=== PATIENT | male | born 1980 | race Two or more races ===

== ENCOUNTER 2017-09-10 07:50 | Emergency (ER) | payer BC ==
[2017-09-10 07:56] VITALS: BP 128/75
--- NOTE | 2017-09-10 08:11 | ER Document Report ---
ED Neck/Back Problem - General Chief Complaint: Low Back Pain Stated Complaint: WC/BACK PAIN Time Seen by Provider: 09/10/17 08:11 Mode of Arrival: Ambulatory Information source: Patient TRAVEL OUTSIDE OF THE [place] IN LAST 30 DAYS: No - HPI Patient complains to provider of: Pain, Injury Onset: Other - 2 DAYS AGO Where: Work Onset: Sudden Timing: Constant, Waxing and waning Quality of pain: Sharp Severity: Moderate Context: Lifting - PICKED UP A 5# BOX OFF FLOOR Recent injury: Yes Associated symptoms: None. denies: Incontinence, Unable to urinate Exacerbated by: Movement of trunk Relieved by: Remaining still Similar symptoms previously: Yes - SEVERAL Recently seen / treated by doctor: Yes - CHIROPRACTOR, YESTERDAY - Related Data Allergies/Adverse Reactions: No Known Allergies Allergy (Verified 09/10/17 07:51) Past Medical History - General Information source: Patient - Social History Smoking Status: Unknown if Ever Smoked Chew tobacco use (# tins/day): No Frequency of alcohol use: Social Drug Abuse: None Lives with: Spouse/Significant other Family History: None Patient has suicidal ideation: No Patient has homicidal ideation: No - Past Medical History Cardiac Medical History: Reports: None Pulmonary Medical History: Reports: None EENT Medical History: Reports: None Neurological Medical History: Reports: None Endocrine Medical History: Reports: None Renal/ Medical History: Reports: None. Denies: Hx Peritoneal Dialysis Malignancy Medical History: Reports None GI Medical History: Reports: None Musculoskeltal Medical History: Reports Other - SEVERAL EPISODES OF INJURY SIMILAR TO PRESENT Psychiatric Medical History: Reports: None Surgical Hx: Negative - Immunizations Hx Diphtheria, Pertussis, Tetanus Vaccination: Yes Review of Systems - Review of Systems Constitutional: No symptoms reported. denies: Fever EENT: No symptoms reported Cardiovascular: No symptoms reported Respiratory: No symptoms reported Gastrointestinal: No symptoms reported Genitourinary: No symptoms reported. denies: Incontinence, Retention Musculoskeletal: See HPI Skin: No symptoms reported Neurological/Psychological: No symptoms reported Physical Exam - Vital signs Vitals: Temp Pulse Resp BP Pulse Ox 98.6 F 88 20 128/75 H 96 09/10/17 07:54 09/10/17 07:54 09/10/17 07:54 09/10/17 07:54 09/10/17 07:54 Interpretation: Normal. No: Tachycardic, Tachypneic, Febrile - General General appearance: Appears well, Alert In distress: None - HEENT Head: Normocephalic Eyes: Normal Conjunctiva: Normal Ears: Normal Nasal: Normal Mouth/Lips: Normal Mucous membranes: Normal - Respiratory Respiratory status: No respiratory distress - Cardiovascular Rhythm: Regular - Abdominal Inspection: Normal Distension: No distension - Back Back: Normal, Tender - PARSPINOUS MUSCLES L3-SI, MORE ON LEFT - Extremities General upper extremity: Normal inspection General lower extremity: Normal inspection - Neurological Neuro grossly intact: Yes Cognition: Normal Orientation: AAOx4 - Psychological Associated symptoms: Normal affect, Normal mood - Skin Skin Temperature: Warm Skin Moisture: Dry Skin Color: Normal Skin Turgor: Elastic Course - Vital Signs Vital signs: Temp Pulse Resp BP Pulse Ox 98.6 F 88 20 128/75 H 96 09/10/17 07:54 09/10/17 07:54 09/10/17 07:54 09/10/17 07:54 09/10/17 07:54 Discharge - Discharge Clinical Impression: Lumbosacral strain Qualifiers: Encounter type: initial encounter Qualified Code(s): S39.012A - Strain of muscle, fascia and tendon of lower back, initial encounter Condition: Stable Disposition: HOME, SELF-CARE Instructions: Muscle Relaxers ([facility]), Oral Narcotic Medication ([facility]), Ice Packs ([facility]), Muscle Strain ([facility]), Ibuprofen (General) ([facility]) Additional Instructions: REST, AVOID PAINFUL ACTIVITY. MEDS DIRECTED. FOLLOW UP WITH YOUR PRIMARY CARE PROVIDER IF NOT IMPROVING IN 48 HOURS. RETURN TO THE E.R. IF YOU GET WORSE. Prescriptions: Hydrocodone/Acetaminophen [[place] 5-325 mg Tablet] 1 tab PO Q4HP PRN #14 tablet PRN Reason: For Pain Diazepam [Valium 5 Mg Tablet] 5 mg PO Q8HP PRN #10 tablet PRN Reason: FOR MUSCLE RELAXATION Forms: Return to Work
== END 2017-09-10 09:05 | disposition home or self-care (01) ==
LOC: ER 07:50
DX: S39.012A Strain of muscle, fascia and tendon of lower back, initial encounter (principal); X50.0XXA Overexertion from strenuous movement or load, initial encounter; Y99.0 Civilian activity done for income or pay
CPT/HCPCS: 99283